=== PATIENT | female | born 1995 | race Caucasian/White ===

== ENCOUNTER 2017-09-02 18:34 | Inpatient (IN) | payer MEDICARE ==
[~2017-09-02] VITALS: Ht 160 cm; Wt 97.1 kg
[2017-09-02 22:54] LABS: RED BLOOD COUNT 4.91 M/UL (4.00-5.10)
== END 2017-09-03 17:38 | disposition other institution (70) | DRG 766 ==
LOC: GENOP 18:34 → OB 20:41
PROVIDERS: ADMIT Obstetrics & Gynecology
PROC: 0U7C7ZZ Dilation of Cervix, Via Natural or Artificial Opening (ICD-10-PCS; 2017-09-02)
PROC: 3E0234Z Introduction of Serum, Toxoid and Vaccine into Muscle, Percutaneous Approach (ICD-10-PCS; 2017-09-03)
PROC: 10D00Z1 Extraction of Products of Conception, Low, Open Approach (ICD-10-PCS; principal; 2017-09-03 06:47)
DX: O76 Abnormality in fetal heart rate and rhythm complicating labor and delivery (principal); O77.0 Labor and delivery complicated by meconium in amniotic fluid; Z3A.40 40 weeks gestation of pregnancy; Z37.0 Single live birth; O69.89X0 Labor and delivery complicated by other cord complications, not applicable or unspecified; Z23 Encounter for immunization; O48.0 Post-term pregnancy; O99.519 Diseases of the respiratory system complicating pregnancy, unspecified trimester; J45.909 Unspecified asthma, uncomplicated
CPT/HCPCS: 36415; 81001; 82800; 85025; 90715; C9113; J0690; J2210; J2274; J2300; J2405; J2590; J2765; J3010; J3105; J3430; J7120; Q0163; Q2039